=== PATIENT | female | born 1990 | race Caucasian/White ===

== ENCOUNTER → 2020-08-08 | Outpatient (CLI) | payer BC ==
[2020-08-08 10:17] LABS: Basophils # (auto) 0.1 10 ^3/uL (0-0.2); Basophils % (auto) 0.9 % (0.0-2.0); Eosinophils # (auto) 0.8 10 ^3/uL (0-0.8); Hematocrit 40.6 % (36.0-46.0); Hemoglobin 14.1 g/dL (12.2-16.2); Lymphocytes # (auto) 1.2 10 ^3/uL (0.4-5.4); Lymphocytes % (auto) 14.3 % (10.0-50.0); Mean Corpuscular Hemoglobin 31.9 pg (28.0-32.0); Mean Corpuscular Hgb Conc. 34.7 g/dL (32.0-36.0); Mean Corpuscular Volume 91.9 fL (80.0-100.0); Monocytes # (auto) 0.5 10 ^3/uL (0-1.3); Monocytes % (auto) 5.9 % (0.0-12.0); Neutrophils # (auto) 5.8 10 ^3/uL (1.6-8.6); Neutrophils % (auto) 68.9 % (37.0-80.0); Nucleated Red Blood Cells % 0.1 %; Platelet Count (auto) 236 10^3/uL (140-450); Red Blood Cells 4.41 10^6/uL (4.0-5.20); Red Cell Distribution Width 12.6 % (11.8-14.3); White Blood Cell 8.3 10^3/uL (4.4-10.8)
[2020-08-08 10:52] LABS: Albumin 3.8 g/dL (3.4-5.0); Potassium 3.9 mmol/L (3.5-5.1)
[2020-08-08 10:57] LABS: BUN/Creatinine Ratio 18.6; Bilirubin, Total 1.1 mg/dL (0.2-1.0); Total Protein 7.3 g/dL (6.4-8.2)
== END | disposition home or self-care (01) ==
LOC: LAB 09:51
PROVIDERS: ATTEND Internal Medicine
DX: R00.2 Palpitations (principal); R07.9 Chest pain, unspecified
CPT/HCPCS: 36415; 80053; 85025

== ENCOUNTER → 2020-08-08 | Outpatient (CLI) | payer BC ==
[~2020-08-08] VITALS: Ht 170.2 cm; Wt 93.0 kg
[~2020-08-08] MED LIST: ADENOSINE 78 MG in GIVE UN-DILUTED 0 ML IV STA
[2020-08-08 08:52] VITALS: BP 132/80
== END | disposition home or self-care (01) ==
LOC: XY 07:13
PROVIDERS: ATTEND Internal Medicine
DX: R00.2 Palpitations (principal); R07.9 Chest pain, unspecified
CPT/HCPCS: 78452; 93017; A9500; J0153

== ENCOUNTER → 2020-08-18 | Outpatient (CLI) | payer BC | END | disposition home or self-care (01) | LOC: XYW 10:07 | PROVIDERS: ATTEND Internal Medicine | DX: I08.2 Rheumatic disorders of both aortic and tricuspid valves (principal); I11.9 Hypertensive heart disease without heart failure | CPT/HCPCS: 93306 ==